=== PATIENT | male | born 1940 | race African-American/Black ===

== ENCOUNTER 2017-07-01 17:50 | Emergency (ER) | payer MEDICARE ==
[~2017-07-01] VITALS: Ht 180.3 cm; Wt 85.0 kg
[2017-07-01 18:19] VITALS: TEMP 37; Ht 180.3 cm; Wt 85.0 kg
--- NOTE | 2017-07-01 19:16 | EMERGENCY ROOM VISIT NOTE ---
History Report prepared by [place]: Farhat Blood Under the Supervision of: Dr. Pravin Adame M.D. First contact with patient: 19:07 Chief Complaint: REFERRED BY DOCTOR Stated Complaint: DOCTOR SENT OVER,POSSIBLE BLOD CLOT AND HEART FAIL History of Present Illness The patient is a 76 year old male who presents to the Emergency Room with complaints of persistent left lower leg swelling that started a couple days ago. He states that the left leg does not hurt, but is uncomfortable to stand on , and he cannot walk due to the swelling. The patient says that he had a kidney transplant done 11 years ago in [place], and has not had any problems with it since then. He notes that he is supposed to wear a brace on his leg, but it cannot fit due to the swelling. He denies any recent trauma, or upper left leg swelling. The patient notes no history of cellulitis. Source of History: patient, caregiver Onset: A couple days ago Position: leg (left lower) Symptom Intensity: can hardly walk Quality: other (swelling) Timing: other (persistent) Modifying Factors (Worsening): other (walking) Note: Patient denies any upper leg swelling or recent trauma. Denies pain. Review of Systems See HPI for pertinent positives & negatives. A total of 10 systems reviewed and were otherwise negative. Past Medical & Surgical Surgical Problems: (1) Kidney replaced by transplant Family History Family history omitted secondary to patient's advanced age. Social History Smokeless Tobacco Use: No Drug Use: none Occupation Status: retired Current/Historical Medications Scheduled Allopurinol (Zyloprim), 100 MG PO DAILY Amlodipine (Norvasc), 5 MG PO BID Aspirin (Aspirin Ec), 81 MG PO DAILY Carvedilol (Coreg), 3.125 MG PO BID Cinacalcet (Sensipar), 30 MG PO DAILY Hydralazine HCl (Hydralazine HCl), 25 MG PO BID Hydrochlorothiazide (Hctz), 25 MG PO DAILY Mycophenolate Mofetil (Cellcept), 500 MG PO BID Nifedipine Ext Rel (Procardia Xl Ext Rel), 60 MG PO BID Omeprazole (Prilosec), 20 MG PO DAILY Tacrolimus (Prograf), 2 MG PO BID Tiotropium [place] (Spiriva Handihaler), 18 MCG INH DAILY Scheduled PRN Albuterol Sulfate (Albuterol Sulfate), 1 VIAL NEB QID PRN for SOB/Wheezing Furosemide (Lasix), 40 MG PO DAILY PRN for water retention Tadalafil (Cialis), 10 MG PO UD PRN for prn Allergies Coded Allergies: No Known Allergies (Unverified , 07/01/17) Physical Exam Vital Signs Date Time Temp Pulse Resp B/P (MAP) Pulse Ox O2 Delivery O2 Flow Rate FiO2 07/01/17 23:30 77 18 176/83 98 07/01/17 20:39 62 22 177/73 100 Nasal Cannula 3.0 07/01/17 19:25 63 07/01/17 18:19 37.0 62 20 160/67 93 Room Air Physical Exam GENERAL: Patient is a healthy-appearing well-nourished 76 year old male. HEAD: Normocephalic atraumatic EYES: Ocular movements intact pupils equal and react to light OROPHARYNX mucous membranes are moist no exudates present no erythema or edema present NECK: Supple no nuchal rigidity CHEST: Good equal expansion LUNGS: Clear and equal to auscultation CARDIAC: Normal S1 and S2 ABDOMEN: Soft nontender no guarding BACK: No CVA tenderness EXTREMITIES: Chronic venous stasis changes to left lower extremity. No evidence of cellulitis present. Leg is swollen. NEURO: Patient is following commands and answering questions appropriately. Alert and oriented x3 Cranial Nerves 2-12 grossly intact Medical Decision & Procedures ER Provider Diagnostic Interpretation: Radiology results as stated below per my review and radiologist interpretation: L VENOUS DOPP LOWER EXT UNILAT HISTORY: 76 years-old Male Pt c/o left leg swelling acute swelling of the left lower extremity COMPARISON: None available TECHNIQUE: Multiple real-time sonographic images of the left lower extremity deep venous structures were obtained assessing grayscale appearance, color and spectral flow FINDINGS: There is mild nonspecific subcutaneous edema of the left calf. There is normal flow, phasicity, compressibility and augmentation of the left lower extremity deep venous structures. IMPRESSION: No sonographic evidence of deep venous thrombosis. The above report was generated using voice recognition software. It may contain grammatical, syntax or spelling errors. Electronically signed by: Sebastien Dennis M.D. 07/01/2017 9:08 PM Dictated Date/Time: 07/01/2017 9:07 PM CHEST ONE VIEW PORTABLE HISTORY: 76 years-old Male Pt c/o leg swelling acute left leg swelling COMPARISON: None available TECHNIQUE: Portable AP view of the chest FINDINGS: Cardiac silhouette is mildly enlarged. There is mild pulmonary vascular congestion without overt pulmonary edema. Atherosclerosis of the aorta. No pneumothorax, pleural effusion, focal airspace consolidation or overt pulmonary edema. Mild multilevel endplate spurring of the spine. Degenerative changes are also noted within the shoulders. IMPRESSION: 1. Cardiomegaly with mild pulmonary vascular congestion. 2. No focal airspace consolidation to suggest pneumonia. The above report was generated using voice recognition software. It may contain grammatical, syntax or spelling errors. Electronically signed by: Sebastien Dennis M.D. 07/01/2017 9:57 PM Dictated Date/Time: 07/01/2017 9:56 PM Laboratory Results 07/01/17 20:12 Red Blood Count 4.49, Mean Corpuscular Volume 93.8, Mean Corpuscular Hemoglobin 30.1, Mean Corpuscular Hemoglobin Concent 32.1, Mean Platelet Volume 12.0, Neutrophils (%) (Auto) 62.0, Lymphocytes (%) (Auto) 27.2, Monocytes (%) (Auto) 7.9, Eosinophils (%) (Auto) 2.1, Basophils (%) (Auto) 0.4, Neutrophils # (Auto) 3.31, Lymphocytes # (Auto) 1.45, Monocytes # (Auto) 0.42, Eosinophils # (Auto) 0.11, Basophils # (Auto) 0.02 07/01/17 20:12 07/01/17 21:31 Test 07/01/17 20:12 07/01/17 20:33 07/01/17 21:31 White Blood Count 5.33 K/uL (4.8-10.8) Red Blood Count 4.49 M/uL (4.7-6.1) Hemoglobin 13.5 g/dL (14.0-18.0) Hematocrit 42.1 % (42-52) Mean Corpuscular Volume 93.8 fL (80-100) Mean Corpuscular Hemoglobin 30.1 pg (25-34) Mean Corpuscular Hemoglobin Concent 32.1 g/dl (32-36) Platelet Count 133 K/uL (130-400) Mean Platelet Volume 12.0 fL (7.4-10.4) Neutrophils (%) (Auto) 62.0 % Lymphocytes (%) (Auto) 27.2 % Monocytes (%) (Auto) 7.9 % Eosinophils (%) (Auto) 2.1 % Basophils (%) (Auto) 0.4 % Neutrophils # (Auto) 3.31 K/uL (1.4-6.5) Lymphocytes # (Auto) 1.45 K/uL (1.2-3.4) Monocytes # (Auto) 0.42 K/uL (0.11-0.59) Eosinophils # (Auto) 0.11 K/uL (0-0.5) Basophils # (Auto) 0.02 K/uL (0-0.2) RDW Standard Deviation 44.1 fL (36.4-46.3) RDW Coefficient of Variation 12.9 % (11.5-14.5) Immature Granulocyte % (Auto) 0.4 % Immature Granulocyte # (Auto) 0.02 K/uL (0.00-0.02) Anion Gap 6.0 mmol/L (3-11) Est Creatinine Clear Calc Drug Dose 50.0 ml/min Estimated GFR () 58.0 Estimated GFR (Non- 50.0 BUN/Creatinine Ratio 13.0 (10-20) Calcium Level 8.7 mg/dl (8.5-10.1) Total Bilirubin 1.0 mg/dl (0.2-1) Alanine Aminotransferase (ALT/SGPT) 18 U/L (12-78) Alkaline Phosphatase 113 U/L (45-117) Total Protein 8.1 gm/dl (6.4-8.2) Albumin 3.3 gm/dl (3.4-5.0) Lipase 30 U/L (73-393) Urine Color YELLOW Urine Appearance CLEAR (CLEAR) Urine pH 6.0 (4.5-7.5) Urine Specific [place] 1.010 (1.000-1.030) Urine Protein NEG (NEG) Urine Glucose (UA) NEG (NEG) Urine Ketones NEG (NEG) Urine Occult Blood NEG (NEG) Urine Nitrite NEG (NEG) Urine Bilirubin NEG (NEG) Urine Urobilinogen NEG (NEG) Urine Leukocyte Esterase SMALL (NEG) Urine WBC (Auto) 10-30 /hpf (0-5) Urine RBC (Auto) 0-4 /hpf (0-4) Urine Hyaline Casts (Auto) 1-5 /lpf (0-5) Urine Epithelial Cells (Auto) 20-30 /lpf (0-5) Urine Bacteria (Auto) 3+ (NEG) Direct Bilirubin 0.3 mg/dl (0-0.2) Aspartate Amino Transf (AST/SGOT) 8 U/L (15-37) Total Creatine Kinase 36 U/L (39-308) Creatine Kinase MB 0.6 ng/ml (0.5-3.6) Creatine Kinase MB Ratio 1.7 (0-3.0) Troponin I < 0.015 ng/ml (0-0.045) Pro-B-Type Natriuretic Peptide 939 pg/ml (0-900) Labs reviewed by ED physician. ECG Indication: other (leg swelling) Rate (beats per minute): 63 Rhythm: normal sinus Findings: 1st degree AV block, T-wave inversion (Lateral), other (left ventricular hypertrophy) Change: Patient's electrocardiogram per my interpretation. ED Course 1907: Past medical records reviewed. The patient was evaluated in room B6. A complete history and physical examination was performed. 2229: Upon reexamination the patient is resting. I discussed results and treatment plan with the patient. He verbalizes agreement and understanding. The patient is ready for discharge. Medical Decision Differential diagnosis: Etiologies such as DVT, musculoskeletal, infection, joint effusion, trauma, lymphedema, idiopathic, CHF, as well as others were entertained. This is a 76-year-old male who presents emergency department over concerns of left leg swelling. The patient has no evidence of a DVT. In addition he has no evidence of cellulitis and does not have an elevation in his white blood count cell count. I believe the patient was placing compression stockings. The patient also has no evidence of pulmonary edema. I do feel that the patient can be safely discharged home for follow-up this primary care physician. Patient was told to have a repeat ultrasound in a week if he is still having continued swelling. Patient and family were in agreement with the treatment plan. Medication Reconcilliation Current Medication List: was personally reviewed by me Blood Pressure Screening Patient's blood pressure: Elevated blood pressure Blood pressure disposition: Referred to PCP Impression Primary Impression: Leg swelling Scribe Attestation The scribe's documentation has been prepared under my direction and personally reviewed by me in its entirety. I confirm that the note above accurately reflects all work, treatment, procedures, and medical decision making performed by me. Departure Information Dispostion Home / Self-Care Referrals No Doctor, Assigned (PCP) Augustin Carrera D.O. Patient Instructions ED Leg Swelling Unilateral, My [facility] Additional Instructions Need repeat Ultrasound in one week Need follow up with Dr Richter for continued leg swelling Wear compression stockings You have been examined and treated today on an emergency basis only. This is not a substitute for, or an effort to provide, complete comprehensive medical care. It is impossible to recognize and treat all injuries or illnesses in a single emergency department visit. It is therefore important that you follow up closely with your PCP. Call as soon as possible for an appointment. Thank you for your time and consideration. I look forward to speaking with you again soon. Please don't hesitate to call us if you have any questions.
[2017-07-01 20:23] LABS: BASO % 0.4 %; BASO ABS # 0.02 K/uL (0-0.2); EOS % 2.1 %; EOS ABS # 0.11 K/uL (0-0.5); HEMATOCRIT 42.1 % (42-52); HEMOGLOBIN 13.5 g/dL (14.0-18.0); IG# 0.02 K/uL (0.00-0.02); LYMPH % 27.2 %; LYMPH ABS # 1.45 K/uL (1.2-3.4); MEAN CELL VOLUME 93.8 fL (80-100); MEAN CORPUSCULAR HEMOGLOBIN 30.1 pg (25-34); MEAN CORPUSCULAR HGB CONC 32.1 g/dl (32-36); MONO % 7.9 %; MONO ABS # 0.42 K/uL (0.11-0.59); NEUT ABS # 3.31 K/uL (1.4-6.5); PLATELET COUNT 133 K/uL (130-400); RED CELL DISTRIBUTION WIDTH CV 12.9 % (11.5-14.5); RED CELL DISTRIBUTION WIDTH SD 44.1 fL (36.4-46.3); WHITE BLOOD COUNT 5.33 K/uL (4.8-10.8)
[2017-07-01] MEDS ORDERED: HYDR25TA4 PO (20:26)
[2017-07-01] MEDS ORDERED: ALLO100T PO (20:26)
[2017-07-01] MEDS ORDERED: FRS/40 PO (20:26)
[2017-07-01] MEDS ORDERED: TACR1CAP PO (20:26)
[2017-07-01] MEDS ORDERED: CINA0.42 PO (20:26)
[2017-07-01] MEDS ORDERED: MYCO500T4 PO (20:26)
[2017-07-01] MEDS ORDERED: NIFE60TA57 PO (20:39)
[2017-07-01] MEDS ORDERED: AMLO-110 PO (20:39)
[2017-07-01] MEDS ORDERED: PRLSR20 PO (20:39)
[2017-07-01] MEDS ORDERED: SPRIN/30 INH (20:39)
[2017-07-01] MEDS ORDERED: HYDR-4716 PO (20:39)
[2017-07-01] MEDS ORDERED: ASPI81TA28 PO (20:39)
[2017-07-01] MEDS ORDERED: CARV3.12 PO (20:39)
[2017-07-01] MEDS ORDERED: ALBU0.633 NEB (20:39)
[2017-07-01] MEDS ORDERED: TADA10TA PO (20:39)
[2017-07-01] MEDS ORDERED: CLON0.2T PO (20:39)
[2017-07-01 20:41] LABS: ALBUMIN 3.3 gm/dl (3.4-5.0); ALKALINE PHOSPHATASE 113 U/L (45-117); ALT/SGPT 18 U/L (12-78); BLOOD UREA NITROGEN 18 mg/dl (7-18); CALCIUM 8.7 mg/dl (8.5-10.1); CARBON DIOXIDE 30 mmol/L (21-32); CREATININE 1.38 mg/dl (0.60-1.40); GLUCOSE 95 mg/dl (70-99); LIPASE 30 U/L (73-393); SODIUM 138 mmol/L (136-145); TOTAL PROTEIN 8.1 gm/dl (6.4-8.2)
--- NOTE | 2017-07-01 21:09 | DIAGNOSTIC IMAGING REPORT ---
L VENOUS DOPP LOWER EXT UNILAT HISTORY: 76 years-old Male Pt c/o left leg swelling acute swelling of the left lower extremity COMPARISON: None available TECHNIQUE: Multiple real-time sonographic images of the left lower extremity deep venous structures were obtained assessing grayscale appearance, color and spectral flow FINDINGS: There is mild nonspecific subcutaneous edema of the left calf. There is normal flow, phasicity, compressibility and augmentation of the left lower extremity deep venous structures. IMPRESSION: No sonographic evidence of deep venous thrombosis. The above report was generated using voice recognition software. It may contain grammatical, syntax or spelling errors. Electronically signed by: Sebastien Dennis M.D. 07/01/2017 9:08 PM Dictated Date/Time: 07/01/2017 9:07 PM
--- NOTE | 2017-07-01 21:59 | DIAGNOSTIC IMAGING REPORT ---
CHEST ONE VIEW PORTABLE HISTORY: 76 years-old Male Pt c/o leg swelling acute left leg swelling COMPARISON: None available TECHNIQUE: Portable AP view of the chest FINDINGS: Cardiac silhouette is mildly enlarged. There is mild pulmonary vascular congestion without overt pulmonary edema. Atherosclerosis of the aorta. No pneumothorax, pleural effusion, focal airspace consolidation or overt pulmonary edema. Mild multilevel endplate spurring of the spine. Degenerative changes are also noted within the shoulders. IMPRESSION: 1. Cardiomegaly with mild pulmonary vascular congestion. 2. No focal airspace consolidation to suggest pneumonia. The above report was generated using voice recognition software. It may contain grammatical, syntax or spelling errors. Electronically signed by: Sebastien Dennis M.D. 07/01/2017 9:57 PM Dictated Date/Time: 07/01/2017 9:56 PM
[2017-07-01 22:19] LABS: POTASSIUM 3.4 mmol/L (3.5-5.1)
[2017-07-01 22:29] LABS: AST/SGOT 8 U/L (15-37); CKMB 0.6 ng/ml (0.5-3.6)
[2017-07-01 23:30] VITALS: BP 176/83; PULSE 77; O2SAT 98
[2017-07-02 01:51] LABS: PTT PATIENT 28.9 SECONDS (21.0-31.0)
[2017-07-04 00:10] LABS: FK506 TACROLIMUS HIGHLY SENS 4.5 MCG/L (5-20)
== END 2017-07-01 23:32 | disposition home or self-care (01) ==
LOC: C.EDB 17:53
DX: R60.0 Localized edema (principal); I87.8 Other specified disorders of veins; I44.0 Atrioventricular block, first degree; Z94.0 Kidney transplant status; Z79.82 Long term (current) use of aspirin